=== PATIENT | male | born 2000 ===

== ENCOUNTER 2021-03-23 16:53 | Outpatient (REF) | payer SELFPAY ==
[2021-03-26 14:45] LABS: COVID-19 RT-PCR UVMMC Result Negative (Negative)
== END 2021-03-23 16:54 | disposition home or self-care (01) ==
LOC: LBN 16:53
PROVIDERS: Visit Provider Physician Assistant
DX: Z20.822 Contact with and (suspected) exposure to COVID-19 (principal)
CPT/HCPCS: U0003

== ENCOUNTER 2021-12-26 17:09 | Outpatient (REF) | payer MEDICAID, SELFPAY ==
[2021-12-26 21:56] LABS: Calculated LDL 148 mg/dL (<100); Cholesterol 218 mg/dL (<200); Glucose 97 mg/dL (74-106); HDL Cholesterol 44 mg/dL (40-60); Triglyceride 131 mg/dL (<150)
== END 2021-12-26 17:10 | disposition home or self-care (01) ==
LOC: NCHCN 17:09
PROVIDERS: Visit Provider Physician Assistant
DX: R79.89 Other specified abnormal findings of blood chemistry (principal); R11.0 Nausea; Z13.220 Encounter for screening for lipoid disorders
CPT/HCPCS: 80061; 82947

== ENCOUNTER 2023-05-01 14:44 | Outpatient (REF) | payer MEDICAID, SELFPAY | END 2023-05-01 14:45 | disposition home or self-care (01) | LOC: LBN 14:44 | PROVIDERS: Visit Provider Physician Assistant | DX: J02.9 Acute pharyngitis, unspecified (principal) | CPT/HCPCS: 87077; 87070 ==

== ENCOUNTER 2025-06-29 18:29 | Outpatient (REF) | payer MEDICAID, SELFPAY ==
[2025-06-30 18:37] LABS: Hepatitis C Ab w Rflx HCV PCR Negative (Negative)
[2025-06-30 18:59] LABS: HIV-1/2 Ag & Ab Screen Negative (Negative)
[2025-07-01 10:39] LABS: Syphilis Serology (RPR) Negative (Negative)
[2025-07-01 11:56] LABS: Chlamydia Result Negative (Negative); GC Result Negative (Negative)
== END 2025-06-29 18:30 | disposition home or self-care (01) ==
LOC: LBN 18:29
PROVIDERS: Visit Provider Physician Assistant Medical
DX: Z11.3 Encounter for screening for infections with a predominantly sexual mode of transmission (principal)
CPT/HCPCS: 86803; 87389; 87491; 87591; 86592